=== PATIENT | male | born 1960 | race Two or more races ===

== ENCOUNTER 2017-03-13 13:55 | Emergency (ER) | payer OTHER ==
[~2017-03-13] VITALS: Ht 170.2 cm; Wt 74.8 kg
[2017-03-13] MEDS ORDERED: SODIUM CHLORIDE 0.9% 1,000 ML IV ONE (14:43)
[2017-03-13] MEDS ORDERED: HYDROmorphone HCL 2 MG/ML VL IV ONE ×2 (14:45→20:30)
[2017-03-13] MEDS ORDERED: ONDANSETRON HCL 4 MG/2 ML VIAL IV ONE ×2 (14:45→20:30)
[2017-03-13 15:58] LABS: INR 0.96 (0.9-1.15); Partial Thromboplastin Time 23.3 sec (22.64-33.71); Prothrombin Time 10.5 sec (9.37-12.3)
[2017-03-13 16:05] LABS: Albumin 4.3 g/dL (3.4-5.0); BUN/Creatinine Ratio 14.4; Bilirubin, Total 0.3 mg/dL (0.2-1.0); Calcium 9.9 mg/dL (8.5-10.1); Potassium 3.4 mmol/L (3.5-5.1); Total Protein 8.3 g/dL (6.4-8.2)
[2017-03-13 16:12] LABS: Basophils # (auto) 0.1 uL; Eosinophils # (auto) 0.2 uL; Eosinophils % (auto) 2.5 % (0.0-7.0); Hematocrit 43.7 % (41.0-53.0); Hemoglobin 14.3 g/dL (13.5-17.5); Lymphocytes # (auto) 2.4 uL; Monocytes # (auto) 0.6 uL
[2017-03-13 16:14] LABS: Basophils % (auto) 0.8 % (0.0-2.0); Lymphocytes % (auto) 30.3 % (10.0-50.0); Mean Corpuscular Hemoglobin 25.8 pg (28.0-32.0); Mean Corpuscular Hgb Conc. 32.8 g/dL (32.0-36.0); Mean Corpuscular Volume 78.8 fL (80.0-100.0); Monocytes % (auto) 7.3 % (0.0-12.0); Neutrophils # (auto) 4.7 uL; Neutrophils % (auto) 59.1 % (37.0-80.0); Nucleated Red Blood Cells % 0.4 %; Platelet Count (auto) 200 10^3/uL (140-450); Red Blood Cells 5.54 10^6/uL (4.5-5.90); Red Cell Distribution Width 13.6 % (11.8-14.3)
[2017-03-13] MEDS ORDERED: D5W/SOD CHL 0.45% 1,000 ML IV ONE (17:30)
[2017-03-13] MEDS ORDERED: DEXTROSE 50% SYRINGE 50 ML IV ONE (17:33)
[2017-03-13] MEDS ORDERED: POTASSIUM CHLORIDE 20 MEQ, LIDOCAINE 1% (LOCAL ANESTH.) 2 ML in SODIUM CHL 0.9% 100 ML IV ONE (17:45)
[2017-03-13] MEDS ORDERED: DEXTROSE (50%) 50ML SYRG IV ONE ×2 (17:45→21:45)
[2017-03-13] MEDS ORDERED: ENALAPRILAT 1.25 MG/ML-1ML VIAL IV PRN (17:45)
[2017-03-13] MEDS ORDERED: D5W/SOD CHL 0.45%/KCL 20MEQ 1,000 ML IV ONE (18:00)
[2017-03-13 21:42] VITALS: BP 154/87
== END 2017-03-13 21:47 | disposition short-term general hospital (02) ==
LOC: EDBD 13:55 → ER 13:55
DX: S42.401A Unspecified fracture of lower end of right humerus, initial encounter for closed fracture (principal); E11.9 Type 2 diabetes mellitus without complications; I10 Essential (primary) hypertension; F17.210 Nicotine dependence, cigarettes, uncomplicated; Z98.61 Coronary angioplasty status; W11.XXXA Fall on and from ladder, initial encounter; Y93.89 Activity, other specified; Y99.8 Other external cause status; Y92.89 Other specified places as the place of occurrence of the external cause
CPT/HCPCS: 36415; 70450; 71250; 72040; 72125; 73030; 73070; 73200; 73502; 73562; 74176; 80053; 82962; 84484; 85025; 85610; 85730; 96361; 96374; 96375; 96376; 99285; J1170; J2001; J2405; J3480; J7042

== ENCOUNTER 2022-12-31 18:28 | Emergency (ER) | payer OTHER ==
[~2022-12-31] VITALS: Ht 170.2 cm; Wt 65.0 kg
[2022-12-31 19:27] VITALS: BP 176/92; RESP 18; O2SAT 98
[2022-12-31 19:28] VITALS: PULSE 66
[2022-12-31 20:21] LABS: Basophils # (auto) 0.1 10 ^3/uL (0-0.2); Eosinophils # (auto) 0.4 10 ^3/uL (0-0.8); Hemoglobin 11.2 g/dL (13.5-17.5); Monocytes # (auto) 0.4 10 ^3/uL (0-1.3); Neutrophils # (auto) 2.4 10 ^3/uL (1.6-8.6); White Blood Cell 5.4 10^3/uL (4.4-10.8)
[2022-12-31 20:23] LABS: Basophils % (auto) 1.3 % (0.0-2.0); Eosinophils % (auto) 7.7 % (0.0-7.0); Hematocrit 34.9 % (41.0-53.0); Lymphocytes # (auto) 2.1 10 ^3/uL (0.4-5.4); Lymphocytes % (auto) 38.5 % (10.0-50.0); Mean Corpuscular Hemoglobin 25.1 pg (28.0-32.0); Mean Corpuscular Volume 78.4 fL (80.0-100.0); Monocytes % (auto) 7.5 % (0.0-12.0); Red Blood Cells 4.45 10^6/uL (4.5-5.90); Red Cell Distribution Width 14.1 % (11.8-14.3)
[2022-12-31 21:22] LABS: Alanine Aminotransferase 22 U/L (7-40); Albumin 4.1 g/dL (3.2-4.8); Alkaline Phosphatase 88 U/L (46-116); Anion Gap 5.1 (5-15); Aspartate Aminotransferase 10 U/L (13-40); BUN/Creatinine Ratio 14.6 (10.0-20.0); Bilirubin, Total 0.3 mg/dL (0.2-1.0); Blood Urea Nitrogen 35 mg/dL (9-23); Carbon Dioxide 25.9 mmol/L (20-30); Chloride 110 mmol/L (98-107); Glucose 189 mg/dL (74-106); Lipase 44 U/L (12-53); Potassium 4.6 mmol/L (3.5-5.1); Sodium 141 mmol/L (136-145)
[2022-12-31 21:23] LABS: Total Protein 6.8 g/dL (5.7-8.2)
== END 2023-01-01 01:02 | disposition left against medical advice (07) ==
LOC: EDBD 18:28 → ER 18:28
DX: R10.11 Right upper quadrant pain (principal); E11.9 Type 2 diabetes mellitus without complications; I10 Essential (primary) hypertension; Z98.890 Other specified postprocedural states; F17.210 Nicotine dependence, cigarettes, uncomplicated
CPT/HCPCS: 36415; 71045; 80053; 83690; 84484; 85025; 93005